=== PATIENT | female | born 1960 | race Caucasian/White ===

== ENCOUNTER 2023-04-05 13:45 | Outpatient (OUT) | payer OTHER, SELFPAY ==
--- NOTE | 2023-04-05 13:53 | MM_ITS ---
Patient: MILLER MONROE Exam Date: 04/05/2023 : 1960 Gender:F Ordering : DR Lenny Cortes . Admission #: [id number] Family : Order #: [id number] CLICK HERE TO VIEW EXAM RADIOLOGY REPORT PROCEDURE: MM TOMOSYNTHESIS SCREENING BI COMPARISON: MG MAMM SCREEN ALFREDO W CAD, 10/28/2020. MG MAMM SCREEN ALFREDO W CAD, 08/14/2019. INDICATIONS: Screening mammogram Z12.31 Calculator Name NCI Breast Cancer Risk Assessment Tool 5 Year Breast Cancer Risk 8.50% Lifetime Breast Cancer Risk 33.10% Personal Breast Cancer No Personal Ovarian Cancer No Treatments None Family Cancers Mother with breast cancer at age 68; Grandmother-maternal with breast cancer at age ~65; Sister with breast cancer at age 35. LOCATION: [facility] BREAST COMPOSITION: Scattered areas fibroglandular density. FINDINGS: DIAGNOSTIC CATEGORY 2--BENIGN FINDING: RIGHT BREAST: No significant suspicious finding. Scattered benign-appearing calcifications are present. LEFT BREAST: No significant suspicious finding. Scattered benign-appearing calcifications are present. No significant change has occurred. RECOMMENDATIONS: ROUTINE MAMMOGRAM AND CLINICAL EVALUATION IN 12 MONTHS. PLEASE NOTE: A NORMAL MAMMOGRAM DOES NOT EXCLUDE THE POSSIBILITY OF BREAST CANCER. A CLINICALLY SUSPICIOUS PALPABLE LUMP SHOULD BE BIOPSIED. Dictated by: Stanton Boo M.D. on 04/05/2023 at 15:05 Approved by: Stanton Boo M.D. on 04/05/2023 at 15:07
== END 2023-04-05 13:46 | disposition home or self-care (01) ==
LOC: MAMMO 13:47
PROVIDERS: PCP Family Medicine; Visit Provider Family Medicine
DX: Z12.31 Encounter for screening mammogram for malignant neoplasm of breast (principal); Z80.3 Family history of malignant neoplasm of breast
CPT/HCPCS: 77063; 77067

== ENCOUNTER 2023-08-02 13:11 | Outpatient (OUT) | payer OTHER, SELFPAY ==
[2023-08-02 13:53] LABS: Free T3 2.32 pg/mL (2.18-3.98); Thyroid Stimulating Hormone 3.221 uIU/mL (0.358-3.740)
[2023-08-02 14:37] LABS: Free T4 0.68 ng/dL (0.76-1.46)
== END 2023-08-02 13:12 | disposition home or self-care (01) ==
LOC: LAB 13:13
PROVIDERS: PCP Family Medicine; Visit Provider Family Medicine
DX: E03.8 Other specified hypothyroidism (principal)
CPT/HCPCS: 36415; 84439; 84443; 84481

== ENCOUNTER 2024-01-05 08:32 | Outpatient (OUT) | payer OTHER, SELFPAY ==
--- OUTSIDE RECORDS SUMMARY | 2024-01-05 08:53 | XMS_ITS | CCD ---
Author Organization [facility] Care Team Providers Care Labourers Name Role Phone DR MIESHA BULLARD Admitting Unavailable DR MIESHA BULLARD Attending Unavailable DR MIESHA BULLARD Primary Care Unavailable JUAN MIGUEL, DR MIESHA Hernandez Consulting Unavailable Results Test Name Value Interpretation Reference Range Facil ity CBC AUTO DIFFon 01-12-2023 BASO # 0.1 103/ul Normal 0.0-0.1 [facility] Comment on above: Performed By: #### C BC #### [facility] [address] [address] [address] Juancho Marrero Basophils/100 WBC (Bld) 0.7 % Normal 0.2-2.0 [facility] Comment on above: Performed By: #### C BC #### [facility] [address] [address] [address] Juancho Marrero EO # 0.3 103/ul Normal 0.0-0.7 [facility] Comment on above: Performed By: #### C BC #### [facility] [address] [address] [address] Juancho Marrero Eosinophils/100 WBC (Bld) 4.9 % Normal 0.9-7.0 [facility] Comment on above: Performed By: #### C BC #### [facility] [address] [address] [address] Juancho Marrero Erythrocyte distribution width (RBC) [Ratio] 12.4 % Normal 11.0-15.0 [facility] Comment on above: Performed By: #### C BC #### [facility] [address] [address] [address] Juancho Marrero Hematocrit (Bld) [Volume fraction] 41.4 % Normal 36.0-48.0 [facility] Comment on above: Performed By: #### C BC #### [facility] [address] [place] [address] Dr. Juancho Marrero Hemoglobin (Bld) [Mass/Vol] 13.4 g/dL Normal 12.0-16.0 [facility] Comment on above: Performed By: #### C BC #### [facility] [address] [place] [address] Dr. Juancho Marrero IG # 0.02 10e3/ul Normal 0.00-0.03 [facility] Comment on above: Performed By: #### C BC #### [facility] [address] [place] [address] Dr. Juancho Marrero IG % 0.3 % Normal 0.0-0.5 [facility] Comment on above: Performed By: #### C BC #### [facility] [address] [place] [address] Dr. Juancho Marrero LYMPH # 2.5 103/ul Normal 1.2-3.8 [facility] Comment on above: Performed By: #### C BC #### [facility] [address] [place] [address] Dr. Juancho Marrero Lymphocytes/100 WBC (Bld) 36.8 % Normal 20.5-60.0 [facility] Comment on above: Performed By: #### C BC #### [facility] [address] [place] [address] Dr. Juancho Marrero MANUAL DIFF REQ NO Normal [facility] Comment on above: Performed By: #### C BC #### [facility] [address] [place] [address] Dr. Juancho Marrero MCH (RBC) [Entitic mass] 31.8 pg Normal 26.7-34.0 [facility] Comment on above: Performed By: #### C BC #### [facility] [address] [place] [address] Dr. Juancho Marrero MCHC (RBC) [Mass/Vol] 32.4 g/dL Normal 29.9-35.2 [facility] Comment on above: Performed By: #### C BC #### [facility] [address] [address] [address] Juancho Marrero MCV (RBC) [Entitic vol] 98.1 fL Normal 81.0-99.0 [facility] Comment on above: Performed By: #### C BC #### [facility] [address] [address] [address] Juancho Marrero MONO # 0.5 103/ul Normal 0.3-0.8 [facility] Comment on above: Performed By: #### C BC #### [facility] [address] [place] [address] Dr. Juancho Marrero Monocytes/100 WBC (Bld) 7.6 % Normal 1.7-12.0 [facility] Comment on above: Performed By: #### C BC #### [facility] [address] [place] [address] Dr. Juancho Marrero NEUT # 3.3 103/ul Normal 1.4-6.5 [facility] Comment on above: Performed By: #### C BC #### [facility] [address] [place] [address] Dr. Juancho Marrero Neutrophils/100 WBC (Bld) 49.7 % Normal 43.0-75.0 [facility] Comment on above: Performed By: #### C BC #### [facility] [address] [place] [address] Dr. Juancho Marrero Platelet mean volume (Bld) [Entitic vol] 9.7 fL Normal 9.5-13.5 [facility] Comment on above: Performed By: #### C BC #### [facility] [address] [place] [address] Dr. Juancho Marrero PLT 293 103/ul Normal 150-450 [facility] Comment on above: Performed By: #### C BC #### [facility] [address] [place] [address] Dr. Juancho Marrero RBC 4.22 106/ul Normal 4.20-5.40 [facility] Comment on above: Performed By: #### C BC #### [facility] [address] [place] [address] Dr. Juancho Marrero WBC 6.7 103/ul Normal 4.0-11.0 [facility] Comment on above: Performed By: #### C BC #### [facility] [address] [address] [address] Juancho Marrero GLYCOHEMOGLOBIN A1Con 2022 ADA RECOMMENDATION SEE BELOW Normal [facility] Comment on above: Result Comment: ADA RECOMMENDED LIMIT 4.0 - 6.0 ADA THERAPEUTIC TARGET < 7.0 ACTION SUGGESTED > 7.0 Performed By: #### A 1C #### [facility] [address] [address] [address] Juancho Marrero Glucose [Mass/Vol] 105 mg/dL Normal [facility] Comment on above: Performed By: #### A 1C #### [facility] [address] [place] [address] Dr. Juancho Marrero HbA1c (Bld) [Mass fraction] 5.3 % Normal 4.5-6.2 [facility] Comment on above: Performed By: #### A 1C #### [facility] [address] [address] [address] Juancho Marrero LIPID PROFILEon 01-12-2023 CHOL-HDL RATIO NORM SEE BELOW Normal [facility] Comment on above: Result Comment: 3.3 - 4.4 LOW RISK 4.4 - 7.1 AVERAGE RISK 7.1 - 11.0 MODERATE RISK >11.0 HIGH RISK Performed By: #### B MP, TSH, LIPID, LIVER #### [facility] [address] [address] [address] Juancho Marrero Cholesterol [Mass/Vol] 225 mg/dL Critically high <=200 [facility] Comment on above: Performed By: #### B MP, TSH, LIPID, LIVER #### [facility] [address] [address] [address] Juancho Marrero Cholesterol in HDL [Mass/Vol] 66 mg/dL Critically high 40-60 [facility] Comment on above: Performed By: #### B MP, TSH, LIPID, LIVER #### [facility] [address] [address] [address] Juancho Marrero Cholesterol in LDL [Mass/Vol] 134.6 mg/dL Normal [facility] Comment on above: Performed By: #### B MP, TSH, LIPID, LIVER #### [facility] [address] [address] [address] Juancho Marrero Cholesterol.total/Cho lesterol in HDL [Mass ratio] 3.4 {ratio} Normal [facility] Comment on above: Performed By: #### B MP, TSH, LIPID, LIVER #### [facility] [address] [place] [address] Dr. Juancho Marrero HDL NORMAL > or = 60 mg/dl - LOW CARDIOVASCULAR RISK <40 mg/dl - HIGH CARDIOVASCULAR RISK Normal [facility] Comment on above: Performed By: #### B MP, TSH, LIPID, LIVER #### [facility] [address] [place] [address] Dr. Juancho Marrero LDL CALC NORMAL SEE BELOW Normal [facility] Comment on above: Result Comment: <100 mg/dl OPTIMAL 100 - 129 mg/dl NEAR OR ABOVE OPTIMAL 130 - 159 mg/dl BORDERLINE HIGH 160 - 189 mg/dl HIGH >190 mg/dl VERY HIGH Performed By: #### B MP, TSH, LIPID, LIVER #### [facility] [address] [place] [address] Dr. Juancho Marrero Triglyceride [Mass/Vol] 122 mg/dL Normal <=150 [facility] Comment on above: Performed By: #### B MP, TSH, LIPID, LIVER #### [facility] [address] [place] [address] Dr. Juancho Marrero VLDL CALC 24.4 mg/dL Normal [facility] Comment on above: Performed By: #### B MP, TSH, LIPID, LIVER #### [facility] [address] [place] [address] Dr. Juancho Marrero LIVER PROFILEon 01-12-2023 Albumin [Mass/Vol] 4.0 g/dL Normal 3.4-5.0 [facility] Comment on above: Performed By: #### B MP, TSH, LIPID, LIVER #### [facility] [address] [place] [address] Dr. Juancho Marrero Albumin/Globulin [Mass ratio] 1.2 {ratio} Normal [facility] Comment on above: Performed By: #### B MP, TSH, LIPID, LIVER #### [facility] [address] [place] [address] Dr. Juancho Marrero ALP [Catalytic activity/Vol] 68 U/L Normal 46-116 [facility] Comment on above: Performed By: #### B MP, TSH, LIPID, LIVER #### [facility] [address] [place] [address] Dr. Juancho Marrero ALT [Catalytic activity/Vol] 28 U/L Normal 14-59 [facility] Comment on above: Performed By: #### B MP, TSH, LIPID, LIVER #### [facility] [address] [place] [address] Dr. Juancho Marrero AST [Catalytic activity/Vol] 19 U/L Normal 15-37 [facility] Comment on above: Performed By: #### B MP, TSH, LIPID, LIVER #### [facility] [address] [place] [address] Dr. Juancho Marrero BILI, CONJUGATED 0.1 mg/dL Normal 0.0-0.2 [facility] Comment on above: Performed By: #### B MP, TSH, LIPID, LIVER #### [facility] [address] [place] [address] Dr. Juancho Marrero Bilirubin [Mass/Vol] 0.3 mg/dL Normal 0.2-1.0 [facility] Comment on above: Performed By: #### B MP, TSH, LIPID, LIVER #### [facility] [address] [place] [address] Dr. Juancho Marrero Globulin (S) [Mass/Vol] 3.3 g/dL Normal [facility] Comment on above: Performed By: #### B MP, TSH, LIPID, LIVER #### [facility] [address] [place] [address] Dr. Juancho Marrero Protein [Mass/Vol] 7.3 g/dL Normal 6.4-8.2 [facility] Comment on above: Performed By: #### B MP, TSH, LIPID, LIVER #### [facility] [address] [place] [address] Dr. Juancho Marrero PROF CHEM 8 (BAS METB)on Anion gap [Moles/Vol] 10.3 mmol/L Normal [facility] Comment on above: Performed By: #### B MP, TSH, LIPID, LIVER #### [facility] [address] [place] [address] Dr. Juancho Marrero Calcium [Mass/Vol] 8.8 mg/dL Normal 8.5-10.1 [facility] Comment on above: Performed By: #### B MP, TSH, LIPID, LIVER #### [facility] [address] [place] [address] Dr. Juancho Marrero Chloride [Moles/Vol] 107 mmol/L Normal 98-107 [facility] Comment on above: Performed By: #### B MP, TSH, LIPID, LIVER #### [facility] [address] [place] [address] Dr. Juancho Marrero CO2 [Moles/Vol] 28.9 mmol/L Normal 21.0-32.0 [facility] Comment on above: Performed By: #### B MP, TSH, LIPID, LIVER #### [facility] [address] [place] [address] Dr. Juancho Marrero Creatinine [Mass/Vol] 0.64 mg/dL Normal 0.55-1.02 [facility] Comment on above: Performed By: #### B MP, TSH, LIPID, LIVER #### [facility] [address] [place] [address] Dr. Juancho Marrero EGFR-AF POLISH >60 Normal >=60 [facility] Comment on above: Performed By: #### B MP, TSH, LIPID, LIVER #### [facility] [address] [place] [address] Dr. Juancho Marrero EGFR-NON AF POLISH >60 Normal >=60 [facility] Comment on above: Performed By: #### B MP, TSH, LIPID, LIVER #### [facility] [address] [place] [address] Dr. Juancho Marrero Glucose [Mass/Vol] 99 mg/dL Normal 74-[address] [facility] Comment on above: Performed By: #### B MP, TSH, LIPID, LIVER #### [facility] [address] [address] [address] Juancho Marrero Potassium [Moles/Vol] 4.2 mmol/L Normal 3.5-5.1 [facility] Comment on above: Performed By: #### B MP, TSH, LIPID, LIVER #### [facility] [address] [address] [address] Juancho Marrero Sodium [Moles/Vol] 142 mmol/L Normal 136-[address] [facility] Comment on above: Performed By: #### B MP, TSH, LIPID, LIVER #### [facility] [address] [place] [address] Dr. Juancho Marrero Urea nitrogen [Mass/Vol] 14.0 mg/dL Normal 7.0-18.0 [facility] Comment on above: Performed By: #### B MP, TSH, LIPID, LIVER #### [facility] [address] [place] [address] Dr. Juancho Marrero Urea nitrogen/Creatinine [Mass ratio] 21.9 mg/mg Normal [facility] Comment on above: Performed By: #### B MP, TSH, LIPID, LIVER #### [facility] [address] [place] [address] Dr. Juancho Marrero TSHon 01-12-2023 TSH 3.881 uIU/mL Critically high 0.358-3.740 [facility] Comment on above: Performed By: #### B MP, TSH, LIPID, LIVER #### [facility] [address] [place] [address] Dr. Juancho Marrero Encounters Encounter Date Encounter Type Care Provider Facility Start: 01-16-2023 Encounter for genera l adult medical examination without abnormal findings DR MIESHA BULLARD [facility] Start: 01-12-2023 End: 01-13-[address] MIESHA BULLARD Facility: Start: 01-12-2023 End: 01-13-2023 Encounter for general adult medical examination without abnormal findings DR MIESHA BULLARD Facility:[facility] Payers Date Payer Category Payer Unknown [id number] Unknown [id number] Summary Purpose Family History No Family History Records Found Advance Directives No Advanced Directives Records Found Additional Source Comments INFORMATION SOURCE (unrecogn ized section and content) DATE CREATED AUTHOR [facility]/17/2023 [facility] RECORDS PERTAINING TO PATIENTS WHO ARE OR HAVE BEEN ENROLLED IN A CHEMICAL DEPENDENCY/SUBSTANCEABUSE PROGRAM, SOME INFORMATION MAY BE OMITTED. This clinical summary was aggregated from multiple sources. Caution should be exercised in using it in the provision of clinical care. This summary normalizes information from multiple sources, and as a consequence, information in this document may materially change the coding, format and clinical context of patient data. In addition, data may be omitted in some cases. CLINICAL DECISIONS SHOULD BE BASED ON THE PRIMARY CLINICAL RECORDS. [facility] [employer] provides no warranty or guarantee of the accuracy or completeness of information in this document.
[2024-01-05 08:56] LABS: Basophils Absolute Auto 0.1 10^3/uL (0.0-0.1); Basophils Percent Auto 0.8 % (0.2-2.0); Eosinophils Absolute Auto 0.3 10^3/uL (0.0-0.7); Eosinophils Percent Auto 5.3 % (0.9-7.0); Hematocrit 38.1 % (36.0-48.0); Hemoglobin 12.2 g/dL (12.0-16.0); Immature Granulocytes Abs Auto 0.02 10^3/uL (0.00-0.03); Immature Granulocytes Pct Auto 0.3 % (0.0-0.5); Lymphocytes Absolute Auto 2.3 10^3/uL (1.2-3.8); Mean Corpuscular Hemoglobin 31.7 pg (26.7-34.0); Mean Platelet Volume 10.5 fL (9.5-13.5); Monocytes Absolute Auto 0.7 10^3/uL (0.3-0.8); Monocytes Percent Auto 10.6 % (1.7-12.0); Neutrophils Absolute Auto 2.9 10^3/uL (1.4-6.5); Platelet Count 259 10^3/uL (150-450); Red Blood Count 3.85 10^6/uL (4.20-5.40); Red Cell Distribution Width 12.4 % (11.0-15.0); White Blood Count 6.2 10^3/uL (4.0-11.0)
[2024-01-05 09:36] LABS: Estimated Average Glucose 117 mg/dL; Glycohemoglobin A1C 5.7 % (4.5-6.2)
[2024-01-05 09:48] LABS: Alanine Aminotransferase 26 U/L (14-59); Albumin Globulin Ratio 1.3; Albumin Level 3.8 g/dL (3.4-5.0); Alkaline Phosphatase 71 U/L (46-116); Anion Gap 12.1; Aspartate Amino Transferase 16 U/L (15-37); BUN Creatinine Ratio 21.6; Bilirubin Direct 0.1 mg/dL (0.0-0.2); Bilirubin Total 0.3 mg/dL (0.2-1.0); Calcium 9.1 mg/dL (8.5-10.1); Carbon Dioxide 26.9 mmol/L (21.0-32.0); Chloride 105 mmol/L (98-107); Cholesterol 204 mg/dL (<=200); Estimated GFR (African America >60 (>=60); Estimated GFR (Non-African Ame >60 (>=60); Glucose 116 mg/dL (74-106); HDL Cholesterol 68 mg/dL (40-60); Sodium 140 mmol/L (136-145); Thyroid Stimulating Hormone 6.425 uIU/mL (0.358-3.740); Total Protein 6.8 g/dL (6.4-8.2); Triglycerides 57 mg/dL (<=150); VLDL CHOLESTEROL 11.4 mg/dL
== END 2024-01-05 08:33 | disposition home or self-care (01) ==
LOC: LAB 08:33
PROVIDERS: PCP Family Medicine; Visit Provider Family Medicine
DX: Z00.00 Encounter for general adult medical examination without abnormal findings (principal)
CPT/HCPCS: 36415; 80048; 80061; 80076; 83036; 84443; 85025

== ENCOUNTER 2024-04-05 07:05 | Outpatient (OUT) | payer OTHER, SELFPAY ==
--- OUTSIDE RECORDS SUMMARY | 2024-04-05 07:07 | XMS_ITS | CCD ---
Author Organization [facility] Care Team Providers Care Rn Discharge Name Role Phone DR MIESHA BULLARD Admitting Unavailable JUAN MIGUEL, DR MIESHA Hernandez Attending Unavailable DR MIESHA BULLARD Primary Care Unavailable JUAN MIGUEL, DR MIESHA Hernandez Consulting Unavailable MIESHA BULLARD Attending Unavailable GANGA STEVENS Attending Unavailable MIESHA BULLARD Referring Unavailable Results Test Name Value Interpretation Reference Range Facil ity CBC AUTO DIFFon 01-12-2023 BASO # 0.1 103/ul Normal 0.0-0.1 [facility] Comment on above: Performed By: #### C BC #### [facility] [address] [place] [address] Dr. Juancho Marrero Basophils/100 WBC (Bld) 0.7 % Normal 0.2-2.0 [facility] Comment on above: Performed By: #### C BC #### [facility] [address] [place] [address] Dr. Juancho Marrero EO # 0.3 103/ul Normal 0.0-0.7 [facility] Comment on above: Performed By: #### C BC #### [facility] [address] [address] [address] Juancho Marrero Eosinophils/100 WBC (Bld) 4.9 % Normal 0.9-7.0 [facility] Comment on above: Performed By: #### C BC #### [facility] [address] [address] [address] Juancho Marrero Erythrocyte distribution width (RBC) [Ratio] 12.4 % Normal 11.0-15.0 [facility] Comment on above: Performed By: #### C BC #### [facility] [address] [place] [address] Dr. Juancho Marrero Hematocrit (Bld) [Volume fraction] 41.4 % Normal 36.0-48.0 [facility] Comment on above: Performed By: #### C BC #### [facility] [address] [place] [address] Dr. Juancho Marrero Hemoglobin (Bld) [Mass/Vol] 13.4 g/dL Normal 12.0-16.0 [facility] Comment on above: Performed By: #### C BC #### [facility] [address] [place] [address] Dr. Juancho Marrero IG # 0.02 10e3/ul Normal 0.00-0.03 [facility] Comment on above: Performed By: #### C BC #### [facility] [address] [place] [address] Dr. Juancho Marrero IG % 0.3 % Normal 0.0-0.5 [facility] Comment on above: Performed By: #### C BC #### [facility] [address] [place] [address] Dr. Juancho Marrero LYMPH # 2.5 103/ul Normal 1.2-3.8 [facility] Comment on above: Performed By: #### C BC #### [facility] [address] [place] [address] Dr. Juancho Marrero Lymphocytes/100 WBC (Bld) 36.8 % Normal 20.5-60.0 [facility] Comment on above: Performed By: #### C BC #### [facility] [address] [place] [address] Dr. Juancho Marrero MANUAL DIFF REQ NO Normal [facility] Comment on above: Performed By: #### C BC #### [facility] [address] [place] [address] Dr. Juancho Marrero MCH (RBC) [Entitic mass] 31.8 pg Normal 26.7-34.0 [facility] Comment on above: Performed By: #### C BC #### [facility] [address] [place] [address] Dr. Juancho Marrero MCHC (RBC) [Mass/Vol] 32.4 g/dL Normal 29.9-35.2 [facility] Comment on above: Performed By: #### C BC #### [facility] [address] [place] [address] Dr. Juancho Marrero MCV (RBC) [Entitic vol] 98.1 fL Normal 81.0-99.0 [facility] Comment on above: Performed By: #### C BC #### [facility] [address] [place] [address] Dr. Juancho Marrero MONO # 0.5 103/ul Normal 0.3-0.8 [facility] Comment on above: Performed By: #### C BC #### [facility] [address] [place] [address] Dr. Juancho Marrero Monocytes/100 WBC (Bld) 7.6 % Normal 1.7-12.0 [facility] Comment on above: Performed By: #### C BC #### [facility] [address] [place] [address] Dr. Juancho Marrero NEUT # 3.3 103/ul Normal 1.4-6.5 [facility] Comment on above: Performed By: #### C BC #### [facility] [address] [place] [address] Dr. Juancho Marrero Neutrophils/100 WBC (Bld) 49.7 % Normal 43.0-75.0 [facility] Comment on above: Performed By: #### C BC #### [facility] [address] [place] [address] Dr. Juancho Marrero Platelet mean volume (Bld) [Entitic vol] 9.7 fL Normal 9.5-13.5 [facility] Comment on above: Performed By: #### C BC #### [facility] [address] [place] [address] Dr. Juancho Marrero PLT 293 103/ul Normal 150-450 [facility] Comment on above: Performed By: #### C BC #### [facility] [address] [place] [address] Dr. Juancho Marrero RBC 4.22 106/ul Normal 4.20-5.40 [facility] Comment on above: Performed By: #### C BC #### [facility] [address] [address] [address] Juancho Marrero WBC 6.7 103/ul Normal 4.0-11.0 [facility] Comment on above: Performed By: #### C BC #### [facility] [address] [address] [address] Juancho Marrero GLYCOHEMOGLOBIN A1Con 2022 ADA RECOMMENDATION SEE BELOW Normal [facility] Comment on above: Result Comment: ADA RECOMMENDED LIMIT 4.0 - 6.0 ADA THERAPEUTIC TARGET < 7.0 ACTION SUGGESTED > 7.0 Performed By: #### A 1C #### [facility] [address] [place] [address] Dr. Juancho Marrero Glucose [Mass/Vol] 105 mg/dL Normal [facility] Comment on above: Performed By: #### A 1C #### [facility] [address] [place] [address] Dr. Juancho Marrero HbA1c (Bld) [Mass fraction] 5.3 % Normal 4.5-6.2 [facility] Comment on above: Performed By: #### A 1C #### [facility] [address] [place] [address] Dr. Juancho Marrero LIPID PROFILEon 01-12-2023 CHOL-HDL RATIO NORM SEE BELOW Normal [facility] Comment on above: Result Comment: 3.3 - 4.4 LOW RISK 4.4 - 7.1 AVERAGE RISK 7.1 - 11.0 MODERATE RISK >11.0 HIGH RISK Performed By: #### B MP, TSH, LIPID, LIVER #### [facility] [address] [address] [address] Juancho Marrero Cholesterol [Mass/Vol] 225 mg/dL Critically high <=200 [facility] Comment on above: Performed By: #### B MP, TSH, LIPID, LIVER #### [facility] [address] [place] [address] Dr. Juancho Marrero Cholesterol in HDL [Mass/Vol] 66 mg/dL Critically high 40-60 [facility] Comment on above: Performed By: #### B MP, TSH, LIPID, LIVER #### [facility] [address] [address] [address] Juancho Marrero Cholesterol in LDL [Mass/Vol] 134.6 mg/dL Normal [facility] Comment on above: Performed By: #### B MP, TSH, LIPID, LIVER #### [facility] [address] [address] [address] Juancho Marrero Cholesterol.total/Cho lesterol in HDL [Mass ratio] 3.4 {ratio} Normal [facility] Comment on above: Performed By: #### B MP, TSH, LIPID, LIVER #### [facility] [address] [address] [address] Juancho Marrero HDL NORMAL > or = 60 mg/dl - LOW CARDIOVASCULAR RISK <40 mg/dl - HIGH CARDIOVASCULAR RISK Normal [facility] Comment on above: Performed By: #### B MP, TSH, LIPID, LIVER #### [facility] [address] [address] [address] Juancho Marrero LDL CALC NORMAL SEE BELOW Normal [facility] Comment on above: Result Comment: <100 mg/dl OPTIMAL 100 - 129 mg/dl NEAR OR ABOVE OPTIMAL 130 - 159 mg/dl BORDERLINE HIGH 160 - 189 mg/dl HIGH >190 mg/dl VERY HIGH Performed By: #### B MP, TSH, LIPID, LIVER #### [facility] [address] [address] [address] Juancho Marrero Triglyceride [Mass/Vol] 122 mg/dL Normal <=150 [facility] Comment on above: Performed By: #### B MP, TSH, LIPID, LIVER #### [facility] [address] [address] [address] Juancho Marrero VLDL CALC 24.4 mg/dL Normal [facility] Comment on above: Performed By: #### B MP, TSH, LIPID, LIVER #### [facility] [address] [address] [address] Juancho Marrero LIVER PROFILEon 01-12-2023 Albumin [Mass/Vol] 4.0 g/dL Normal 3.4-5.0 [facility] Comment on above: Performed By: #### B MP, TSH, LIPID, LIVER #### [facility] [address] [place] [address] Dr. Juancho Marrero Albumin/Globulin [Mass ratio] 1.2 {ratio} Normal [facility] Comment on above: Performed By: #### B MP, TSH, LIPID, LIVER #### [facility] [address] [place] [address] Dr. Juancho Marrero ALP [Catalytic activity/Vol] 68 U/L Normal 46-116 [facility] Comment on above: Performed By: #### B MP, TSH, LIPID, LIVER #### [facility] [address] [place] [address] Dr. Juancho Marrero ALT [Catalytic activity/Vol] 28 U/L Normal 14-59 [facility] Comment on above: Performed By: #### B MP, TSH, LIPID, LIVER #### [facility] [address] [place] [address] Dr. Juancho Marrero AST [Catalytic activity/Vol] 19 U/L Normal 15-37 [facility] Comment on above: Performed By: #### B MP, TSH, LIPID, LIVER #### [facility] [address] [place] [address] Dr. Juancho Marrero BILI, CONJUGATED 0.1 mg/dL Normal 0.0-0.2 [facility] Comment on above: Performed By: #### B MP, TSH, LIPID, LIVER #### [facility] [address] [place] [address] Dr. Juancho Marrero Bilirubin [Mass/Vol] 0.3 mg/dL Normal 0.2-1.0 [facility] Comment on above: Performed By: #### B MP, TSH, LIPID, LIVER #### [facility] [address] [place] [address] Dr. Juancho Marrero Globulin (S) [Mass/Vol] 3.3 g/dL Normal [facility] Comment on above: Performed By: #### B MP, TSH, LIPID, LIVER #### [facility] [address] [place] [address] Dr. Juancho Marrero Protein [Mass/Vol] 7.3 g/dL Normal 6.4-8.2 [facility] Comment on above: Performed By: #### B MP, TSH, LIPID, LIVER #### [facility] [address] [address] [address] Juancho Marrero PROF CHEM 8 (BAS METB)on Anion gap [Moles/Vol] 10.3 mmol/L Normal [facility] Comment on above: Performed By: #### B MP, TSH, LIPID, LIVER #### [facility] [address] [address] [address] Juancho Marrero Calcium [Mass/Vol] 8.8 mg/dL Normal 8.5-10.1 [facility] Comment on above: Performed By: #### B MP, TSH, LIPID, LIVER #### [facility] [address] [place] [address] Dr. Juancho Marrero Chloride [Moles/Vol] 107 mmol/L Normal 98-107 [facility] Comment on above: Performed By: #### B MP, TSH, LIPID, LIVER #### [facility] [address] [address] [address] Juancho Marrero CO2 [Moles/Vol] 28.9 mmol/L Normal 21.0-32.0 [facility] Comment on above: Performed By: #### B MP, TSH, LIPID, LIVER #### [facility] [address] [address] [address] Juancho Marrero Creatinine [Mass/Vol] 0.64 mg/dL Normal 0.55-1.02 [facility] Comment on above: Performed By: #### B MP, TSH, LIPID, LIVER #### [facility] [address] [address] [address] Juancho Marrero EGFR-AF SWEDISH >60 Normal >=60 [facility] Comment on above: Performed By: #### B MP, TSH, LIPID, LIVER #### [facility] [address] [address] [address] Juancho Marrero EGFR-NON AF SWEDISH >60 Normal >=60 [facility] Comment on above: Performed By: #### B MP, TSH, LIPID, LIVER #### [facility] [address] [address] [address] Juancho Marrero Glucose [Mass/Vol] 99 mg/dL Normal 74-106 [facility] Comment on above: Performed By: #### B MP, TSH, LIPID, LIVER #### [facility] [address] [address] [address] Juancho Marrero Potassium [Moles/Vol] 4.2 mmol/L Normal 3.5-5.1 [facility] Comment on above: Performed By: #### B MP, TSH, LIPID, LIVER #### [facility] [address] [address] [address] Juancho Marrero Sodium [Moles/Vol] 142 mmol/L Normal 136-145 [facility] Comment on above: Performed By: #### B MP, TSH, LIPID, LIVER #### [facility] [address] [address] [address] Juancho Marrero Urea nitrogen [Mass/Vol] 14.0 mg/dL Normal 7.0-18.0 [facility] Comment on above: Performed By: #### B MP, TSH, LIPID, LIVER #### [facility] [address] [address] [address] Juancho Marrero Urea nitrogen/Creatinine [Mass ratio] 21.9 mg/mg Normal [facility] Comment on above: Performed By: #### B MP, TSH, LIPID, LIVER #### [facility] [address] [place] [address] Dr. Juancho Marrero TSHon 01-12-2023 TSH 3.881 uIU/mL Critically high 0.358-3.740 [facility] Comment on above: Performed By: #### B MP, TSH, LIPID, LIVER #### [facility] [address] [place] [address] Dr. Juancho Marrero Encounters Encounter Date Encounter Type Care Provider Facility Start: 01-26-2024 End: 01-26-2024 ambulatory GANGA STEVENS Not Available Start: 01-05-2024 End: 01-05-2024 ambulatory MIESHA BULLARD Not Available Start: 01-16-2023 Encounter for genera l adult medical examination without abnormal findings DR MIESHA BULLARD [facility] Start: 01-12-2023 End: 01-13-[address] MIESHA BULLARD Facility:[id number] Start: 01-12-2023 End: 01-13-2023 Encounter for general adult medical examination without abnormal findings DR MIESHA BULLARD Facility:[id number] Payers Date Payer Category Payer Unknown [id number] 1960 Unknown [id number] 1960 Unknown [id number] 1960 Unknown [id number] Summary Purpose Family History No Family History Records FoundNo Family History Records Found Advance Directives No Advanced Directives Records FoundNo Advanced Directives Records Found Additional Source Comments INFORMATION SOURCE (unrecogn ized section and content) DATE CREATED AUTHOR 01/17/2023 [facility] DATE CREATED AUTHOR AUTHOR'S ORGANIZ ATION 01/29/2024 [facility] EPIC FOR RECORDS PERTAINING TO PATIENTS WHO ARE [...] BE BASED ON THE PRIMARY CLINICAL RECORDS. [facility] [employer] provides no warranty or guarantee of the accuracy or completeness of information in this document.
== END 2024-04-05 07:06 | disposition home or self-care (01) ==
LOC: PST 07:05
PROVIDERS: PCP Family Medicine; Visit Provider Surgery
DX: Z01.818 Encounter for other preprocedural examination (principal); Z12.11 Encounter for screening for malignant neoplasm of colon

== ENCOUNTER 2024-04-11 07:02 | Day surgery (SDC) | payer OTHER, SELFPAY ==
--- OUTSIDE RECORDS SUMMARY | 2024-04-11 07:06 | XMS_ITS | CCD ---
Author Organization [facility] Team Providers Care Claim Taker Name Role Phone DR MIESHA BULLARD Admitting Unavailable JUAN MIGUEL, DR MIESHA Hernandez Attending Unavailable DR MIESHA BULLARD Primary Care Unavailable JUAN MIGUEL, DR MIESHA Hernandez Consulting Unavailable MIESHA BULLARD Attending Unavailable AGNGA STEVENS Attending Unavailable MIESHA BULLARD Referring Unavailable Results Test Name Value Interpretation Reference Range Facil ity CBC AUTO DIFFon 01-12-2023 BASO # 0.1 103/ul Normal 0.0-0.1 [facility] Comment on above: Performed By: #### C BC #### [facility] [address] [place] [address] Dr. Juancho Marrero Basophils/100 WBC (Bld) 0.7 % Normal 0.2-2.0 [facility] Comment on above: Performed By: #### C BC #### [facility] [address] [place] [address] Dr. Juancho Marrero EO # 0.3 103/ul Normal 0.0-0.7 [facility] Comment on above: Performed By: #### C BC #### [facility] [address] [address] [address] Juancho Marrero Eosinophils/100 WBC (Bld) 4.9 % Normal 0.9-7.0 [facility] Comment on above: Performed By: #### C BC #### [facility] [address] [place] [address] Dr. Juancho Marrero Erythrocyte distribution width (RBC) [Ratio] 12.4 % Normal 11.0-15.0 [facility] Comment on above: Performed By: #### C BC #### [facility] [address] [place] [address] Dr. Juancho Marrero Hematocrit (Bld) [Volume fraction] 41.4 % Normal 36.0-48.0 [facility] Comment on above: Performed By: #### C BC #### [facility] [address] [place] [address] Dr. Juancho Marrero Hemoglobin (Bld) [Mass/Vol] 13.4 g/dL Normal 12.0-16.0 [facility] Comment on above: Performed By: #### C BC #### [facility] [address] [place] [address] Dr. Juancho Marrero IG # 0.02 10e3/ul Normal 0.00-0.03 [facility] Comment on above: Performed By: #### C BC #### [facility] [address] [place] [address] Dr. Juancho Marrero IG % 0.3 % Normal 0.0-0.5 [facility] Comment on above: Performed By: #### C BC #### [facility] [address] [place] [address] Dr. Juancho Marrero LYMPH # 2.5 103/ul Normal 1.2-3.8 [facility] Comment on above: Performed By: #### C BC #### [facility] [address] [place] [address] Dr. Juancho Marrero Lymphocytes/100 WBC (Bld) 36.8 % Normal 20.5-60.0 [facility] Comment on above: Performed By: #### C BC #### [facility] [address] [place] [address] Dr. Juancho Marrero MANUAL DIFF REQ NO Normal [facility] Comment on above: Performed By: #### C BC #### [facility] [address] [place] [address] Dr. Juancho Marrero MCH (RBC) [Entitic mass] 31.8 pg Normal 26.7-34.0 [facility] Comment on above: Performed By: #### C BC #### [facility] [address] [place] [address] Dr. Juancho Marrero MCHC (RBC) [Mass/Vol] 32.4 g/dL Normal 29.9-35.2 [facility] Comment on above: Performed By: #### C BC #### [facility] [address] [place] [address] Dr. Juancho Marrero MCV (RBC) [Entitic vol] 98.1 fL Normal 81.0-99.0 [facility] Comment on above: Performed By: #### C BC #### [facility] [address] [place] [address] Dr. Juancho Marrero MONO # 0.5 103/ul Normal 0.3-0.8 [facility] Comment on above: Performed By: #### C BC #### [facility] [address] [place] [address] Dr. Juancho Marrero Monocytes/100 WBC (Bld) 7.6 % Normal 1.7-12.0 [facility] Comment on above: Performed By: #### C BC #### [facility] [address] [place] [address] Dr. Juancho Marrero NEUT # 3.3 103/ul Normal 1.4-6.5 [facility] Comment on above: Performed By: #### C BC #### [facility] [address] [place] [address] Dr. Juancho Marrero Neutrophils/100 WBC (Bld) 49.7 % Normal 43.0-75.0 [facility] Comment on above: Performed By: #### C BC #### [facility] [address] [place] [address] Dr. Juancho Marrero Platelet mean volume (Bld) [Entitic vol] 9.7 fL Normal 9.5-13.5 [facility] Comment on above: Performed By: #### C BC #### [facility] [address] [place] [address] Dr. Juancho Marrero PLT 293 103/ul Normal 150-450 [facility] Comment on above: Performed By: #### C BC #### [facility] [address] [place] [address] Dr. Juancho Marrero RBC 4.22 106/ul Normal 4.20-5.40 [facility] Comment on above: Performed By: #### C BC #### [facility] [address] [address] [address] Juancho Marrero WBC 6.7 103/ul Normal 4.0-11.0 [facility] Comment on above: Performed By: #### C BC #### [facility] [address] [address] [address] Juancho Marrero GLYCOHEMOGLOBIN A1Con 2022 ADA RECOMMENDATION SEE BELOW Normal [facility] Comment on above: Result Comment: ADA RECOMMENDED LIMIT 4.0 - 6.0 ADA THERAPEUTIC TARGET < 7.0 ACTION SUGGESTED > 7.0 Performed By: #### A 1C #### [facility] [address] [place] [address] Dr. Juancho Marrero Glucose [Mass/Vol] 105 mg/dL Normal [facility] Comment on above: Performed By: #### A 1C #### [facility] [address] [place] [address] Dr. Juancho Marrero HbA1c (Bld) [Mass fraction] 5.3 % Normal 4.5-6.2 [facility] Comment on above: Performed By: #### A 1C #### [facility] [address] [place] [address] Dr. Juancho Marrero LIPID PROFILEon 01-12-2023 CHOL-HDL RATIO NORM SEE BELOW Normal [facility] Comment on above: Result Comment: 3.3 - 4.4 LOW RISK 4.4 - 7.1 AVERAGE RISK 7.1 - 11.0 MODERATE RISK >11.0 HIGH RISK Performed By: #### B MP, TSH, LIPID, LIVER #### [facility] [address] [address] [address] Juancho Marrero Cholesterol [Mass/Vol] 225 mg/dL Critically high <=200 [facility] Comment on above: Performed By: #### B MP, TSH, LIPID, LIVER #### [facility] [address] [place] [address] Dr. Juancho Marrero Cholesterol in HDL [Mass/Vol] 66 mg/dL Critically high 40-60 [facility] Comment on above: Performed By: #### B MP, TSH, LIPID, LIVER #### [facility] [address] [address] [address] Juancho Marrero Cholesterol in LDL [Mass/Vol] 134.6 mg/dL Normal [facility] Comment on above: Performed By: #### B MP, TSH, LIPID, LIVER #### [facility] [address] [address] [address] Juancho Marrero Cholesterol.total/Cho lesterol in HDL [Mass ratio] 3.4 {ratio} Normal [facility] Comment on above: Performed By: #### B MP, TSH, LIPID, LIVER #### [facility] [address] [address] [address] Juancho Marrero HDL NORMAL > or = 60 mg/dl - LOW CARDIOVASCULAR RISK <40 mg/dl - HIGH CARDIOVASCULAR RISK Normal [facility] Comment on above: Performed By: #### B MP, TSH, LIPID, LIVER #### [facility] [address] [address] [address] Juancho Marrero LDL CALC NORMAL SEE BELOW Normal [facility] Comment on above: Result Comment: <100 mg/dl OPTIMAL 100 - 129 mg/dl NEAR OR ABOVE OPTIMAL 130 - 159 mg/dl BORDERLINE HIGH 160 - 189 mg/dl HIGH >190 mg/dl VERY HIGH Performed By: #### B MP, TSH, LIPID, LIVER #### [facility] [address] [address] [address] Juancho Marrero Triglyceride [Mass/Vol] 122 mg/dL Normal <=150 [facility] Comment on above: Performed By: #### B MP, TSH, LIPID, LIVER #### [facility] [address] [address] [address] Juancho Marrero VLDL CALC 24.4 mg/dL Normal [facility] Comment on above: Performed By: #### B MP, TSH, LIPID, LIVER #### [facility] [address] [address] [address] Juancho Marrero LIVER PROFILEon 01-12-2023 Albumin [Mass/Vol] 4.0 g/dL Normal 3.4-5.0 [facility] Comment on above: Performed By: #### B MP, TSH, LIPID, LIVER #### [facility] [address] [place] [address] Dr. Juancho Marrero Albumin/Globulin [Mass ratio] 1.2 {ratio} Normal [facility] Comment on above: Performed By: #### B MP, TSH, LIPID, LIVER #### [facility] [address] [place] [address] Dr. Juancho Marrero ALP [Catalytic activity/Vol] 68 U/L Normal 46-116 [facility] Comment on above: Performed By: #### B MP, TSH, LIPID, LIVER #### [facility] [address] [place] [address] Dr. Juancho Marrero ALT [Catalytic activity/Vol] 28 U/L Normal 14-59 [facility] Comment on above: Performed By: #### B MP, TSH, LIPID, LIVER #### [facility] [address] [place] [address] Dr. Juancho Marrero AST [Catalytic activity/Vol] 19 U/L Normal 15-37 [facility] Comment on above: Performed By: #### B MP, TSH, LIPID, LIVER #### [facility] [address] [place] [address] Dr. Juancho Marrero BILI, CONJUGATED 0.1 mg/dL Normal 0.0-0.2 [facility] Comment on above: Performed By: #### B MP, TSH, LIPID, LIVER #### [facility] [address] [place] [address] Dr. Juancho Marrero Bilirubin [Mass/Vol] 0.3 mg/dL Normal 0.2-1.0 [facility] Comment on above: Performed By: #### B MP, TSH, LIPID, LIVER #### [facility] [address] [place] [address] Dr. Juancho Marrero Globulin (S) [Mass/Vol] 3.3 g/dL Normal [facility] Comment on above: Performed By: #### B MP, TSH, LIPID, LIVER #### [facility] [address] [place] [address] Dr. Juancho Marrero Protein [Mass/Vol] 7.3 g/dL Normal 6.4-8.2 [facility] Comment on above: Performed By: #### B MP, TSH, LIPID, LIVER #### [facility] [address] [address] [address] Juancho Marrero PROF CHEM 8 (BAS METB)on Anion gap [Moles/Vol] 10.3 mmol/L Normal [facility] Comment on above: Performed By: #### B MP, TSH, LIPID, LIVER #### [facility] [address] [address] [address] Juancho Marrero Calcium [Mass/Vol] 8.8 mg/dL Normal 8.5-10.1 [facility] Comment on above: Performed By: #### B MP, TSH, LIPID, LIVER #### [facility] [address] [place] [address] Dr. Juancho Marrero Chloride [Moles/Vol] 107 mmol/L Normal 98-107 [facility] Comment on above: Performed By: #### B MP, TSH, LIPID, LIVER #### [facility] [address] [address] [address] Juancho Marrero CO2 [Moles/Vol] 28.9 mmol/L Normal 21.0-32.0 [facility] Comment on above: Performed By: #### B MP, TSH, LIPID, LIVER #### [facility] [address] [address] [address] Juancho Marrero Creatinine [Mass/Vol] 0.64 mg/dL Normal 0.55-1.02 [facility] Comment on above: Performed By: #### B MP, TSH, LIPID, LIVER #### [facility] [address] [address] [address] Juancho Marrero EGFR-AF CYPRIOT >60 Normal >=60 [facility] Comment on above: Performed By: #### B MP, TSH, LIPID, LIVER #### [facility] [address] [address] [address] Juancho Marrero EGFR-NON AF CYPRIOT >60 Normal >=60 [facility] Comment on above: Performed By: #### B MP, TSH, LIPID, LIVER #### [facility] [address] [address] [address] Juancho Marrero Glucose [Mass/Vol] 99 mg/dL Normal 74-106 [facility] Comment on above: Performed By: #### B MP, TSH, LIPID, LIVER #### [facility] [address] [address] [address] Juancho Marrero Potassium [Moles/Vol] 4.2 mmol/L Normal 3.5-5.1 [facility] Comment on above: Performed By: #### B MP, TSH, LIPID, LIVER #### [facility] [address] [address] [address] Juancho Marrero Sodium [Moles/Vol] 142 mmol/L Normal 136-145 [facility] Comment on above: Performed By: #### B MP, TSH, LIPID, LIVER #### [facility] [address] [address] [address] Juancho Marrero Urea nitrogen [Mass/Vol] 14.0 mg/dL Normal 7.0-18.0 [facility] Comment on above: Performed By: #### B MP, TSH, LIPID, LIVER #### [facility] [address] [address] [address] Juancho Marrero Urea nitrogen/Creatinine [Mass ratio] 21.9 mg/mg Normal [facility] Comment on above: Performed By: #### B MP, TSH, LIPID, LIVER #### [facility] [address] [place] [address] Dr. Juancho Marrero TSHon 01-12-2023 TSH 3.881 uIU/mL Critically high 0.358-3.740 [facility] Comment on above: Performed By: #### B MP, TSH, LIPID, LIVER #### [facility] [address] [place] [address] Dr. Juancho Marrero Encounters Encounter Date Encounter Type Care Provider Facility Start: 01-26-2024 End: 01-26-2024 ambulatory GANGA STEVENS Not Available Start: 01-05-2024 End: 01-05-2024 ambulatory MIESHA BULLARD Not Available Start: 01-16-2023 Encounter for genera l adult medical examination without abnormal findings DR MIESHA BULLARD [facility] Start: 01-12-2023 End: 01-13-[address] MIESHA BULLARD Facility:[facility] Start: 01-12-2023 End: 01-13-2023 Encounter for general adult medical examination without abnormal findings DR MIESHA BULLARD Facility:[facility] Payers Date Payer Category Payer Unknown [id number] 1960 Unknown [id number] 1960 Unknown [id number] 1960 Unknown [id number] Summary Purpose Family History No Family History Records FoundNo Family History Records Found Advance Directives No Advanced Directives Records FoundNo Advanced Directives Records Found Additional Source Comments INFORMATION SOURCE (unrecogn ized section and content) DATE CREATED AUTHOR 01/17/2023 [facility] DATE CREATED AUTHOR AUTHOR'S ORGANIZ ATION 01/29/2024 [facility] EPIC FOR RECORDS [...] BE BASED ON THE PRIMARY CLINICAL RECORDS. [facility] [email or web address] provides no warranty or guarantee of the accuracy or completeness of information in this document.
[2024-04-11 07:30] VITALS: BP 151/86; PULSE 59; TEMP 36.6; O2SAT 100; BMI 20.3
[2024-04-11] MEDS: LACTATED RINGER'S SOLUTION 1,000 ML 50 ML IV (07:46)
--- NOTE | 2024-04-11 08:43 | W.PM.PROCNOT ---
Date of procedure: 04/11/24 Pre-op diagnosis: screening colonoscopy Post-op diagnosis: other (redundant/ tortuous sigmoid colon ) Procedure: Previous colonoscopy: 2013 procedure: screening colonoscopy The patient was given IV conscious sedation.? The patient's SPO2 remained above 90% throughout the procedure. The colonoscope was inserted per rectum and advanced under direct vision to the cecum with some difficulty due to redundant sigmoid.? The prep was good.? Findings: Terminal ileum os: normal Cecum/Ascending colon: normal Transverse colon: normal Descending/Sigmoid colon: normal aside for redundancy and some tortuousness Rectum/Anus: examined in normal and retroflexed positions and was normal Withdrawal Time was (minutes): 10 The colon was decompressed and the scope was removed.? The patient tolerated the procedure well. Recommendations/Plan: 1.? Lifestyle and dietary modifications as discussed 2.? F/U in 10 years 3.? Discussed with the family Anesthesia: MAC Surgeon: Ace Todd Estimated blood loss (mL): 0 Condition: stable Disposition: PACU
[2024-04-11 09:29] VITALS: BP 136/53; PULSE 72; O2SAT 96
[2024-04-11 09:50] VITALS: BP 160/68; PULSE 69; O2SAT 100
== END 2024-04-11 10:07 | disposition home or self-care (01) ==
PROVIDERS: PCP Family Medicine; Visit Provider Surgery
PROC: (CPT 812; principal; 2024-04-11 08:25)
DX: Z12.11 Encounter for screening for malignant neoplasm of colon (principal); Q43.8 Other specified congenital malformations of intestine; Z98.51 Tubal ligation status; I10 Essential (primary) hypertension
CPT/HCPCS: 45378; J2704

== ENCOUNTER 2024-05-22 12:30 | Outpatient (OUT) | payer OTHER, SELFPAY ==
--- NOTE | 2024-05-22 12:34 | MM_ITS ---
Patient Name: MILLER MONROE MR#: [id number] : 1960 Exam Date: 05/22/2024 Ordering Doctor: DR Lenny Cortes . RADIOLOGY REPORT PROCEDURE: MM TOMOSYNTHESIS SCREENING BI COMPARISON: MM TOMOSYNTHESIS SCREENING BI, 04/05/2023. MG MAMM SCREEN ALFREDO W CAD, 10/28/2020. INDICATIONS: Screening for malignant neoplasm Calculator Name NCI Breast Cancer Risk Assessment Tool 5 Year Breast Cancer Risk 8.80% Lifetime Breast Cancer Risk 32.30% Personal Breast Cancer No Personal Ovarian Cancer No Treatments None Family Cancers Mother with breast cancer at age 68; Grandmother-maternal with breast cancer at age ~65; Sister with breast cancer at age 35. LOCATION: [facility] BREAST COMPOSITION: There are scattered areas of fibroglandular density. FINDINGS: DIAGNOSTIC CATEGORY 2--BENIGN FINDING. NO CHANGE FROM COMPARISON. Scattered benign-appearing calcifications are present. Scattered benign-appearing lymph nodes are present. RIGHT BREAST: No significant suspicious finding. LEFT BREAST: No significant suspicious finding. RECOMMENDATIONS: ROUTINE MAMMOGRAM AND CLINICAL EVALUATION IN 12 MONTHS. PLEASE NOTE: A NORMAL MAMMOGRAM DOES NOT EXCLUDE THE POSSIBILITY OF BREAST CANCER. A CLINICALLY SUSPICIOUS PALPABLE LUMP SHOULD BE BIOPSIED. Dictated by: Jamel Lou MD on 05/22/2024 at 15:37 Approved by: Jamel Lou MD on 05/22/2024 at 15:39
--- OUTSIDE RECORDS SUMMARY | 2024-05-22 12:47 | XMS_ITS | CCD ---
Author Organization [facility] Team Providers Care Marketing Operations Manager Name Role Phone DR MIESHA BULLARD Admitting Unavailable JUAN MIGUEL, DR MIESHA Hernandez Attending Unavailable DR MIESHA BULLARD Primary Care Unavailable JUAN MIGUEL, DR MIESHA Hernandez Consulting Unavailable MIESHA BULLARD Attending Unavailable GANGA STEVENS Attending Unavailable MIESHA BULLARD Referring Unavailable Results Test Name Value Interpretation Reference Range Facil ity CBC AUTO DIFFon 01-12-2023 BASO # 0.1 103/ul Normal 0.0-0.1 [facility] Comment on above: Performed By: #### C BC #### [facility] [address] [place] [address] Dr. Juancho Marrero Basophils/100 WBC (Bld) 0.7 % Normal 0.2-2.0 [facility] Comment on above: Performed By: #### C BC #### [facility] [address] [place] [address] Dr. Juancho Marrero EO # 0.3 103/ul Normal 0.0-0.7 [facility] Comment on above: Performed By: #### C BC #### [facility] [address] [address] [address] Juancho Marrero Eosinophils/100 WBC (Bld) 4.9 % Normal 0.9-7.0 [facility] Comment on above: Performed By: #### C BC #### [facility] [address] [address] [address] Juancho Marrero Erythrocyte distribution width (RBC) [Ratio] 12.4 % Normal 11.0-15.0 [facility] Comment on above: Performed By: #### C BC #### [facility] [address] [place] [address] Dr. Juancho Marrero Hematocrit (Bld) [Volume fraction] 41.4 % Normal 36.0-48.0 [facility] Comment on above: Performed By: #### C BC #### [facility] [address] [place] [address] Dr. uJancho Marrero Hemoglobin (Bld) [Mass/Vol] 13.4 g/dL Normal 12.0-16.0 [facility] Comment on above: Performed By: #### C BC #### [facility] [address] [place] [address] Dr. Juancho Marrero IG # 0.02 10e3/ul Normal 0.00-0.03 [facility] Comment on above: Performed By: #### C BC #### [facility] [address] [place] [address] Dr. Juancho Marrero IG % 0.3 % Normal 0.0-0.5 [facility] Comment on above: Performed By: #### C BC #### [facility] [address] [place] [address] Dr. Juancho Marrero LYMPH # 2.5 103/ul Normal 1.2-3.8 [facility] Comment on above: Performed By: #### C BC #### [facility] [address] [place] [address] Dr. Juancho Marrero Lymphocytes/100 WBC (Bld) 36.8 % Normal 20.5-60.0 [facility] Comment on above: Performed By: #### C BC #### [facility] [address] [place] [address] Dr. Juancho Marrero MANUAL DIFF REQ NO Normal [facility] Comment on above: Performed By: #### C BC #### [facility] [address] [place] [address] Dr. Juancho Marrero MCH (RBC) [Entitic mass] 31.8 pg Normal 26.7-34.0 [facility] Comment on above: Performed By: #### C BC #### [facility] [address] [place] [address] Dr. Juancho Marrero MCHC (RBC) [Mass/Vol] 32.4 g/dL Normal 29.9-35.2 [facility] Comment on above: Performed By: #### C BC #### [facility] [address] [place] [address] Dr. Juancho Marrero MCV (RBC) [Entitic vol] 98.1 fL Normal 81.0-99.0 [facility] Comment on above: Performed By: #### C BC #### [facility] [address] [place] [address] Dr. Juancho Marrero MONO # 0.5 103/ul Normal 0.3-0.8 [facility] Comment on above: Performed By: #### C BC #### [facility] [address] [place] [address] Dr. Juancho Marrero Monocytes/100 WBC (Bld) 7.6 % Normal 1.7-12.0 [facility] Comment on above: Performed By: #### C BC #### [facility] [address] [place] [address] Dr. Juancho Marrero NEUT # 3.3 103/ul Normal 1.4-6.5 [facility] Comment on above: Performed By: #### C BC #### [facility] [address] [place] [address] Dr. Juancho Marrero Neutrophils/100 WBC (Bld) 49.7 % Normal 43.0-75.0 [facility] Comment on above: Performed By: #### C BC #### [facility] [address] [place] [address] Dr. Juancho Marrero Platelet mean volume (Bld) [Entitic vol] 9.7 fL Normal 9.5-13.5 [facility] Comment on above: Performed By: #### C BC #### [facility] [address] [place] [address] Dr. Juancho Marrero PLT 293 103/ul Normal 150-450 [facility] Comment on above: Performed By: #### C BC #### [facility] [address] [place] [address] Dr. Juancho Marrero RBC 4.22 106/ul Normal 4.20-5.40 [facility] Comment on above: Performed By: #### C BC #### [facility] [address] [address] [address] Juancho Marrero WBC 6.7 103/ul Normal 4.0-11.0 [facility] Comment on above: Performed By: #### C BC #### [facility] [address] [address] [address] Juancho Marrero GLYCOHEMOGLOBIN A1Con 2022 ADA RECOMMENDATION SEE BELOW Normal [facility] Comment on above: Result Comment: ADA RECOMMENDED LIMIT 4.0 - 6.0 ADA THERAPEUTIC TARGET < 7.0 ACTION SUGGESTED > 7.0 Performed By: #### A 1C #### [facility] [address] [place] [address] Dr. Juancho Marrero Glucose [Mass/Vol] 105 mg/dL Normal [facility] Comment on above: Performed By: #### A 1C #### [facility] [address] [place] [address] Dr. Juancho Marrero HbA1c (Bld) [Mass fraction] 5.3 % Normal 4.5-6.2 [facility] Comment on above: Performed By: #### A 1C #### [facility] [address] [place] [address] Dr. Juancho Marrero LIPID PROFILEon 01-12-2023 CHOL-HDL RATIO NORM SEE BELOW Normal [facility] Comment on above: Result Comment: 3.3 - 4.4 LOW RISK 4.4 - 7.1 AVERAGE RISK 7.1 - 11.0 MODERATE RISK >11.0 HIGH RISK Performed By: #### B MP, TSH, LIPID, LIVER #### [facility] [address] [address] [address] Juancho Marrero Cholesterol [Mass/Vol] 225 mg/dL Critically high <=200 [facility] Comment on above: Performed By: #### B MP, TSH, LIPID, LIVER #### [facility] [address] [place] [address] Dr. Juancho Marrero Cholesterol in HDL [Mass/Vol] 66 mg/dL Critically high 40-60 [facility] Comment on above: Performed By: #### B MP, TSH, LIPID, LIVER #### [facility] [address] [address] [address] Juancho Marrero Cholesterol in LDL [Mass/Vol] 134.6 mg/dL Normal [facility] Comment on above: Performed By: #### B MP, TSH, LIPID, LIVER #### [facility] [address] [address] [address] Juancho Marrero Cholesterol.total/Cho lesterol in HDL [Mass ratio] 3.4 {ratio} Normal [facility] Comment on above: Performed By: #### B MP, TSH, LIPID, LIVER #### [facility] [address] [address] [address] Juancho Marrero HDL NORMAL > or = 60 mg/dl - LOW CARDIOVASCULAR RISK <40 mg/dl - HIGH CARDIOVASCULAR RISK Normal [facility] Comment on above: Performed By: #### B MP, TSH, LIPID, LIVER #### [facility] [address] [address] [address] Juancho Marrero LDL CALC NORMAL SEE BELOW Normal [facility] Comment on above: Result Comment: <100 mg/dl OPTIMAL 100 - 129 mg/dl NEAR OR ABOVE OPTIMAL 130 - 159 mg/dl BORDERLINE HIGH 160 - 189 mg/dl HIGH >190 mg/dl VERY HIGH Performed By: #### B MP, TSH, LIPID, LIVER #### [facility] [address] [address] [address] Juancho Marrero Triglyceride [Mass/Vol] 122 mg/dL Normal <=150 [facility] Comment on above: Performed By: #### B MP, TSH, LIPID, LIVER #### [facility] [address] [address] [address] Juancho Marrero VLDL CALC 24.4 mg/dL Normal [facility] Comment on above: Performed By: #### B MP, TSH, LIPID, LIVER #### [facility] [address] [address] [address] Juancho Marrero LIVER PROFILEon 01-12-2023 Albumin [Mass/Vol] 4.0 g/dL Normal 3.4-5.0 [facility] Comment on above: Performed By: #### B MP, TSH, LIPID, LIVER #### [facility] [address] [place] [address] Dr. Juancho Marrero Albumin/Globulin [Mass ratio] 1.2 {ratio} Normal [facility] Comment on above: Performed By: #### B MP, TSH, LIPID, LIVER #### [facility] [address] [place] [address] Dr. Juancho Marrero ALP [Catalytic activity/Vol] 68 U/L Normal 46-116 [facility] Comment on above: Performed By: #### B MP, TSH, LIPID, LIVER #### [facility] [address] [place] [address] Dr. Juancho Marrero ALT [Catalytic activity/Vol] 28 U/L Normal 14-59 [facility] Comment on above: Performed By: #### B MP, TSH, LIPID, LIVER #### [facility] [address] [place] [address] Dr. Juancho Marrero AST [Catalytic activity/Vol] 19 U/L Normal 15-37 [facility] Comment on above: Performed By: #### B MP, TSH, LIPID, LIVER #### [facility] [address] [place] [address] Dr. Juancho Marrero BILI, CONJUGATED 0.1 mg/dL Normal 0.0-0.2 [facility] Comment on above: Performed By: #### B MP, TSH, LIPID, LIVER #### [facility] [address] [place] [address] Dr. Juancho Marrero Bilirubin [Mass/Vol] 0.3 mg/dL Normal 0.2-1.0 [facility] Comment on above: Performed By: #### B MP, TSH, LIPID, LIVER #### [facility] [address] [place] [address] Dr. Juancho Marrero Globulin (S) [Mass/Vol] 3.3 g/dL Normal [facility] Comment on above: Performed By: #### B MP, TSH, LIPID, LIVER #### [facility] [address] [place] [address] Dr. Juancho Marrero Protein [Mass/Vol] 7.3 g/dL Normal 6.4-8.2 [facility] Comment on above: Performed By: #### B MP, TSH, LIPID, LIVER #### [facility] [address] [address] [address] Juancho Marrero PROF CHEM 8 (BAS METB)on Anion gap [Moles/Vol] 10.3 mmol/L Normal [facility] Comment on above: Performed By: #### B MP, TSH, LIPID, LIVER #### [facility] [address] [address] [address] Juancho Marrero Calcium [Mass/Vol] 8.8 mg/dL Normal 8.5-10.1 [facility] Comment on above: Performed By: #### B MP, TSH, LIPID, LIVER #### [facility] [address] [place] [address] Dr. Juancho Marrero Chloride [Moles/Vol] 107 mmol/L Normal 98-107 [facility] Comment on above: Performed By: #### B MP, TSH, LIPID, LIVER #### [facility] [address] [address] [address] Juancho Marrero CO2 [Moles/Vol] 28.9 mmol/L Normal 21.0-32.0 [facility] Comment on above: Performed By: #### B MP, TSH, LIPID, LIVER #### [facility] [address] [address] [address] Juancho Marrero Creatinine [Mass/Vol] 0.64 mg/dL Normal 0.55-1.02 [facility] Comment on above: Performed By: #### B MP, TSH, LIPID, LIVER #### [facility] [address] [address] [address] Juancho Marrero EGFR-AF VENEZUELAN >60 Normal >=60 [facility] Comment on above: Performed By: #### B MP, TSH, LIPID, LIVER #### [facility] [address] [address] [address] Juancho Marrero EGFR-NON AF VENEZUELAN >60 Normal >=60 [facility] Comment on above: Performed By: #### B MP, TSH, LIPID, LIVER #### [facility] [address] [address] [address] Juancho Marrero Glucose [Mass/Vol] 99 mg/dL Normal 74-106 [facility] Comment on above: Performed By: #### B MP, TSH, LIPID, LIVER #### [facility] [address] [address] [address] Juancho Marrero Potassium [Moles/Vol] 4.2 mmol/L Normal 3.5-5.1 [facility] Comment on above: Performed By: #### B MP, TSH, LIPID, LIVER #### [facility] [address] [address] [address] Juancho Marrero Sodium [Moles/Vol] 142 mmol/L Normal 136-145 [facility] Comment on above: Performed By: #### B MP, TSH, LIPID, LIVER #### [facility] [address] [address] [address] Juancho Marrero Urea nitrogen [Mass/Vol] 14.0 mg/dL Normal 7.0-18.0 [facility] Comment on above: Performed By: #### B MP, TSH, LIPID, LIVER #### [facility] [address] [address] [address] Juancho Marrero Urea nitrogen/Creatinine [Mass ratio] 21.9 mg/mg Normal [facility] Comment on above: Performed By: #### B MP, TSH, LIPID, LIVER #### [facility] [address] [place] [address] Dr. Juancho Marrero TSHon 01-12-2023 TSH 3.881 uIU/mL Critically high 0.358-3.740 [facility] Comment on above: Performed By: #### B MP, TSH, LIPID, LIVER #### [facility] [address] [place] [address] Dr. Juancho Marrero Encounters Encounter Date Encounter Type Care Provider Facility Start: 01-26-2024 End: 01-26-2024 ambulatory GANGA STEVENS Not Available Start: 01-05-2024 End: 01-05-2024 ambulatory MIESHA BULLARD Not Available Start: 01-16-2023 Encounter for genera l adult medical examination without abnormal findings DR MIESHA BULLARD [facility] Start: 01-12-2023 End: 01-13-[address] MIESHA BULLARD Facility:[facility] Start: 01-12-2023 End: 01-13-2023 Encounter for general adult medical examination without abnormal findings DR MIESHA BULLARD Facility:[facility] Payers Date Payer Category Payer Unknown [id number] 1960 Unknown [id number] 1960 Unknown [id number] 1960 Unknown [id number] Summary Purpose Family History No Family History Records FoundNo Family History Records Found Advance Directives No Advanced Directives Records FoundNo Advanced Directives Records Found Additional Source Comments INFORMATION SOURCE (unrecogn ized section and content) DATE CREATED AUTHOR 01/17/2023 [facility] DATE CREATED AUTHOR AUTHOR'S ORGANIZ ATION 01/29/2024 [facility] EPIC FOR RECORDS [...] BE BASED ON THE PRIMARY CLINICAL RECORDS. [facility] [employer] provides no warranty or guarantee of the accuracy or completeness of information in this document.
== END 2024-05-22 12:31 | disposition home or self-care (01) ==
LOC: MAMMO 12:30
PROVIDERS: PCP Family Medicine; Visit Provider Family Medicine
DX: Z12.31 Encounter for screening mammogram for malignant neoplasm of breast (principal); Z80.3 Family history of malignant neoplasm of breast
CPT/HCPCS: 77063; 77067

== ENCOUNTER 2025-02-22 08:59 | Outpatient (OUT) | payer OTHER, SELFPAY ==
--- OUTSIDE RECORDS SUMMARY | 2025-02-22 09:17 | XMS_ITS | CCD ---
Author Organization [facility] Care Team Providers Care Member Certification Manager Name Role Phone DR MIESHA BULLARD Admitting Unavailable DR MIESHA BULLARD Attending Unavailable DR MIESHA BULLARD Primary Care Unavailable JUAN MIGUEL, DR MIESHA Hernandez Consulting Unavailable Miesha Bullard MD Primary Care Provider MIESHA BULLARD Attending Unavailable GANGA STEVENS Attending Unavailable MIESHA BULLARD Referring Unavailable MIESHA BULLARD Attending Unavailable Allergies Allergy Classification Reported Allergen(s) Allergy Type Date of Onset Reaction(s) Facility (4 sources) Morphine Drug Allergy 01-26-2024 Rash [facility] Medications Current Medications Medication Drug Class(es) Dates Sig (Normalized) Sig (Original) acetaminophen 300 mg / codeine phosphate 30 mg oral tablet (1 source) Opioid Agonist Start: 07-25-2024 End: 08-01-2024 take 1 tablet by mouth four times daily as needed for pain acetaminophen-codein e (Tylenol w/ Codeine #3) 300-30 MG tablet Indications: Primary osteoarthritis of right shoulder Take 1 tablet by mouth 4 (four) times a day as needed for severe pain for up to 7 days 28 tablet 07/25/2024 08/01/2024 Active lisinopril 5 mg oral tablet (4 sources) Angiotensin Converting Enzyme Inhibitor Start: 01-17-2024 take 0.5 tablet by mouth once daily lisinopril 5 MG tablet Indications: Essential hypertension, benign (CMS/HCC) take 1/2 tablet by mouth once daily 45 tablet 3 01/17/2024 Active Problems Active Problems Problem Classification Problem Date Documented Date Episodic/Chronic Disorders of lipid metabolism (4 sources) Dyslipidemia; Translations: [Hyperlipidemia, unspecified] Onset: 01-05-2024 01-05-2024 Chronic Essential hypertension (6 sources) Benign essential hypertension; Translations: [Essential (primary) hypertension] Onset: 01-05-2024 01-05-2024 Chronic Osteoarthritis (8 sources) Osteoarthritis of joint of right shoulder region; Translations: [Primary osteoarthritis, right shoulder] Onset: 01-05-2024 01-05-2024 Chronic Thyroid disorders (6 sources) Subclinical hypothyroidism; Translations: [Other specified hypothyroidism] Onset: 01-05-2024 01-05-2024 Chronic Past or Other Problems Problem Classification Problem Date Documented Da te Episodic/Chronic Diabetes mellitus without complication (4 sources) Prediabetes; Translations: [Prediabetes] Onset: 03-15-2024 03-15-2024 Episodic Other aftercare (4 sources) Long-term current use of drug therapy; Translations: [Other nursing home (current) drug therapy] Onset: 03-15-2024 03-15-2024 Episodic Other non-traumatic joint disorders (4 sources) Chronic pain of right upper limb; Translations: [Pain in right shoulder] Onset: 01-05-2024 Resolved: 01-05-2024 01-05-2024 Episodic Results Test Name Value Interpretation Reference Range Facil ity CBC AUTO DIFFon 01-12-2023 BASO # 0.1 103/ul Normal 0.0-0.1 [facility] Comment on above: Performed By: #### C BC #### [facility] [address] [place] [address] Dr. Juancho Marrero Basophils/100 WBC (Bld) 0.7 % Normal 0.2-2.0 [facility] Comment on above: Performed By: #### C BC #### [facility] [address] [place] [address] Dr. Juancho Marrero EO # 0.3 103/ul Normal 0.0-0.7 [facility] Comment on above: Performed By: #### C BC #### [facility] [address] [place] [address] Dr. Juancho Marrero Eosinophils/100 WBC (Bld) 4.9 % Normal 0.9-7.0 [facility] Comment on above: Performed By: #### C BC #### [facility] [address] [place] [address] Dr. Juancho Marrero Erythrocyte distribution width (RBC) [Ratio] 12.4 % Normal 11.0-15.0 [facility] Comment on above: Performed By: #### C BC #### [facility] [address] [place] [address] Dr. Juancho Marrero Hematocrit (Bld) [Volume fraction] 41.4 % Normal 36.0-48.0 [facility] Comment on above: Performed By: #### C BC #### [facility] [address] [place] [address] Dr. Juancho Marrero Hemoglobin (Bld) [Mass/Vol] 13.4 g/dL Normal 12.0-16.0 [facility] Comment on above: Performed By: #### C BC #### [facility] [address] [place] [address] Dr. Juancho Marrero IG # 0.02 10e3/ul Normal 0.00-0.03 [facility] Comment on above: Performed By: #### C BC #### [facility] [address] [place] [address] Dr. Juancho Marrero IG % 0.3 % Normal 0.0-0.5 [facility] Comment on above: Performed By: #### C BC #### [facility] [address] [place] [address] Dr. Juancho Marrero LYMPH # 2.5 103/ul Normal 1.2-3.8 [facility] Comment on above: Performed By: #### C BC #### [facility] [address] [place] [address] Dr. Juancho Marrero Lymphocytes/100 WBC (Bld) 36.8 % Normal 20.5-60.0 [facility] Comment on above: Performed By: #### C BC #### [facility] [address] [place] [address] Dr. Juancho Marrero MANUAL DIFF REQ NO Normal [facility] Comment on above: Performed By: #### C BC #### [facility] [address] [place] [address] Dr. Juancho Marrero MCH (RBC) [Entitic mass] 31.8 pg Normal 26.7-34.0 [facility] Comment on above: Performed By: #### C BC #### [facility] [address] [place] [address] Dr. Juancho Marrero MCHC (RBC) [Mass/Vol] 32.4 g/dL Normal 29.9-35.2 [facility] Comment on above: Performed By: #### C BC #### [facility] [address] [place] [address] Dr. Juancho Marrero MCV (RBC) [Entitic vol] 98.1 fL Normal 81.0-99.0 [facility] Comment on above: Performed By: #### C BC #### [facility] [address] [place] [address] Dr. Juancho Marrero MONO # 0.5 103/ul Normal 0.3-0.8 [facility] Comment on above: Performed By: #### C BC #### [facility] [address] [place] [address] Dr. Juancho Marrero Monocytes/100 WBC (Bld) 7.6 % Normal 1.7-12.0 [facility] Comment on above: Performed By: #### C BC #### [facility] [address] [place] [address] Dr. Juancho Marrero NEUT # 3.3 103/ul Normal 1.4-6.5 [facility] Comment on above: Performed By: #### C BC #### [facility] [address] [place] [address] Dr. Juancho Marrero Neutrophils/100 WBC (Bld) 49.7 % Normal 43.0-75.0 [facility] Comment on above: Performed By: #### C BC #### [facility] [address] [place] [address] Dr. Juancho Marrero Platelet mean volume (Bld) [Entitic vol] 9.7 fL Normal 9.5-13.5 [facility] Comment on above: Performed By: #### C BC #### [facility] [address] [place] [address] Dr. Juancho Marrero PLT 293 103/ul Normal 150-450 [facility] Comment on above: Performed By: #### C BC #### [facility] [address] [place] [address] Dr. Juancho Marrero RBC 4.22 106/ul Normal 4.20-5.40 [facility] Comment on above: Performed By: #### C BC #### [facility] [address] [place] [address] Dr. Juancho Marrero WBC 6.7 103/ul Normal 4.0-11.0 [facility] Comment on above: Performed By: #### C BC #### [facility] [address] [place] [address] Dr. Juancho Marrero GLYCOHEMOGLOBIN A1Con 2022 ADA RECOMMENDATION SEE BELOW Normal [facility] Comment on above: Result Comment: ADA RECOMMENDED LIMIT 4.0 - 6.0 ADA THERAPEUTIC TARGET < 7.0 ACTION SUGGESTED > 7.0 Performed By: #### A 1C #### [facility] [address] [place] [address] Dr. Juancho Marrero Glucose [Mass/Vol] 105 mg/dL Normal [facility] Comment on above: Performed By: #### A 1C #### [facility] [address] [place] [address] Dr. Juancho Marrero HbA1c (Bld) [Mass fraction] 5.3 % Normal 4.5-6.2 [facility] Comment on above: Performed By: #### A 1C #### [facility] [address] [place] [address] Dr. Juancho Marrero LIPID PROFILEon 01-12-2023 CHOL-HDL RATIO NORM SEE BELOW Normal [facility] Comment on above: Result Comment: 3.3 - 4.4 LOW RISK 4.4 - 7.1 AVERAGE RISK 7.1 - 11.0 MODERATE RISK >11.0 HIGH RISK Performed By: #### B MP, TSH, LIPID, LIVER #### [facility] [address] [place] [address] Dr. Juancho Marrero Cholesterol [Mass/Vol] 225 mg/dL Critically high <=200 [facility] Comment on above: Performed By: #### B MP, TSH, LIPID, LIVER #### [facility] [address] [address] [address] Juancho Marrero Cholesterol in HDL [Mass/Vol] 66 mg/dL Critically high 40-60 [facility] Comment on above: Performed By: #### B MP, TSH, LIPID, LIVER #### [facility] [address] [address] [address] Juancho Marrero Cholesterol in LDL [Mass/Vol] 134.6 mg/dL Normal [facility] Comment on above: Performed By: #### B MP, TSH, LIPID, LIVER #### [facility] [address] [address] [address] Juancho Marrero Cholesterol.total/Cho lesterol in HDL [Mass ratio] 3.4 {ratio} Normal [facility] Comment on above: Performed By: #### B MP, TSH, LIPID, LIVER #### [facility] [address] [address] [address] Juancho Marrero HDL NORMAL > or = 60 mg/dl - LOW CARDIOVASCULAR RISK <40 mg/dl - HIGH CARDIOVASCULAR RISK Normal [facility] Comment on above: Performed By: #### B MP, TSH, LIPID, LIVER #### [facility] [address] [address] [address] Juancho Marrero LDL CALC NORMAL SEE BELOW Normal [facility] Comment on above: Result Comment: <100 mg/dl OPTIMAL 100 - 129 mg/dl NEAR OR ABOVE OPTIMAL 130 - 159 mg/dl BORDERLINE HIGH 160 - 189 mg/dl HIGH >190 mg/dl VERY HIGH Performed By: #### B MP, TSH, LIPID, LIVER #### [facility] [address] [address] [address] Juancho Marrero Triglyceride [Mass/Vol] 122 mg/dL Normal <=150 [facility] Comment on above: Performed By: #### B MP, TSH, LIPID, LIVER #### [facility] [address] [address] [address] Juancho Marrero VLDL CALC 24.4 mg/dL Normal [facility] Comment on above: Performed By: #### B MP, TSH, LIPID, LIVER #### [facility] [address] [address] [address] Juancho Marrero LIVER PROFILEon 01-12-2023 Albumin [Mass/Vol] 4.0 g/dL Normal 3.4-5.0 [facility] Comment on above: Performed By: #### B MP, TSH, LIPID, LIVER #### [facility] [address] [address] [address] Juancho Marrero Albumin/Globulin [Mass ratio] 1.2 {ratio} Normal [facility] Comment on above: Performed By: #### B MP, TSH, LIPID, LIVER #### [facility] [address] [place] [address] Dr. Juancho Marrero ALP [Catalytic activity/Vol] 68 U/L Normal 46-116 [facility] Comment on above: Performed By: #### B MP, TSH, LIPID, LIVER #### [facility] [address] [place] [address] Dr. Juancho Marrero ALT [Catalytic activity/Vol] 28 U/L Normal 14-59 [facility] Comment on above: Performed By: #### B MP, TSH, LIPID, LIVER #### [facility] [address] [address] [address] Juancho Marrero AST [Catalytic activity/Vol] 19 U/L Normal 15-37 [facility] Comment on above: Performed By: #### B MP, TSH, LIPID, LIVER #### [facility] [address] [address] [address] Juancho Marrero BILI, CONJUGATED 0.1 mg/dL Normal 0.0-0.2 [facility] Comment on above: Performed By: #### B MP, TSH, LIPID, LIVER #### [facility] [address] [address] [address] Juancho Marrero Bilirubin [Mass/Vol] 0.3 mg/dL Normal 0.2-1.0 [facility] Comment on above: Performed By: #### B MP, TSH, LIPID, LIVER #### [facility] [address] [place] [address] Dr. Juancho Marrero Globulin (S) [Mass/Vol] 3.3 g/dL Normal [facility] Comment on above: Performed By: #### B MP, TSH, LIPID, LIVER #### [facility] [address] [place] [address] Dr. Juancho Marrero Protein [Mass/Vol] 7.3 g/dL Normal 6.4-8.2 [facility] Comment on above: Performed By: #### B MP, TSH, LIPID, LIVER #### [facility] [address] [address] [address] Juancho Marrero PROF CHEM 8 (BAS METB)on Anion gap [Moles/Vol] 10.3 mmol/L Normal [facility] Comment on above: Performed By: #### B MP, TSH, LIPID, LIVER #### [facility] [address] [place] [address] Dr. Juancho Marrero Calcium [Mass/Vol] 8.8 mg/dL Normal 8.5-10.1 [facility] Comment on above: Performed By: #### B MP, TSH, LIPID, LIVER #### [facility] [address] [place] [address] Dr. Juancho Marrero Chloride [Moles/Vol] 107 mmol/L Normal 98-107 [facility] Comment on above: Performed By: #### B MP, TSH, LIPID, LIVER #### [facility] [address] [place] [address] Dr. Juancho Marrero CO2 [Moles/Vol] 28.9 mmol/L Normal 21.0-32.0 [facility] Comment on above: Performed By: #### B MP, TSH, LIPID, LIVER #### [facility] [address] [place] [address] Dr. Juancho Marrero Creatinine [Mass/Vol] 0.64 mg/dL Normal 0.55-1.02 [facility] Comment on above: Performed By: #### B MP, TSH, LIPID, LIVER #### [facility] [address] [place] [address] Dr. Juancho Marrero EGFR-AF CITIZ[place] >60 Normal >=60 [facility] Comment on above: Performed By: #### B MP, TSH, LIPID, LIVER #### [facility] [address] [place] [address] Dr. Juancho Marrero EGFR-NON AF CITIZEN OF [place] >60 Normal >=60 [facility] Comment on above: Performed By: #### B MP, TSH, LIPID, LIVER #### [facility] [address] [place] [address] Dr. Juancho Marrero Glucose [Mass/Vol] 99 mg/dL Normal 74-106 [facility] Comment on above: Performed By: #### B MP, TSH, LIPID, LIVER #### [facility] [address] [place] [address] Dr. Juancho Marrero Potassium [Moles/Vol] 4.2 mmol/L Normal 3.5-5.1 [facility] Comment on above: Performed By: #### B MP, TSH, LIPID, LIVER #### [facility] [address] [place] [address] Dr. Juancho Marrero Sodium [Moles/Vol] 142 mmol/L Normal 136-145 [facility] Comment on above: Performed By: #### B MP, TSH, LIPID, LIVER #### [facility] [address] [place] [address] Dr. Juancho Marrero Urea nitrogen [Mass/Vol] 14.0 mg/dL Normal 7.0-18.0 [facility] Comment on above: Performed By: #### B MP, TSH, LIPID, LIVER #### [facility] [address] [place] [address] Dr. Juancho Marrero Urea nitrogen/Creatinine [Mass ratio] 21.9 mg/mg Normal [facility] Comment on above: Performed By: #### B MP, TSH, LIPID, LIVER #### [facility] [address] [place] [address] Dr. Juancho Marrero TSHon 01-12-2023 TSH 3.881 uIU/mL Critically high 0.358-3.740 [facility] Comment on above: Performed By: #### B MP, TSH, LIPID, LIVER #### [facility] [address] [place] [address] Dr. Juancho Marrero Vital Signs Date Time Vital Sign Value Performing Clinician Faci lity 07-14-2024 11:02-0500 Body height 154.9 cm Miesha Bullard MD Work Phone: [facility] 07-14-2024 11:02-0500 Body mass index (BMI) [Ratio] 20.41 kg/m2 Miesha Bullard MD Work Phone: [facility] 07-14-2024 11:02-0500 Body temperature 97.11 [degF] Miesha Bullard MD Work Phone: [facility] 07-14-2024 11:02-0500 Body weight 48.99 kg Miesha Bullard MD Work Phone: [facility] 07-14-2024 11:02-0500 Diastolic blood pressure 46 mm[Hg] Miesha Bullard MD Work Phone: [facility] 07-14-2024 11:02-0500 Heart rate 63 /min Miesha Bullard MD Work Phone: [facility] 07-14-2024 11:02-0500 Respiratory rate 22 /min Miesha Bullard MD Work Phone: [facility] 07-14-2024 11:02-0500 SaO2% (BldA) [Mass fraction] 98 % Miesha Bullard MD Work Phone: [facility] 07-14-2024 11:02-0500 Systolic blood pressure 110 mm[Hg] Miesha Bullard MD Work Phone: [facility] Encounters Encounter Date Encounter Type Care Provider Facility Start: 07-25-2024 End: 07-25-2024 Refill Miesha Bullard MD Work Phone: [facility] Comment on above: Primary osteoarthrit is of right shoulder Start: 07-14-2024 End: 07-14-2024 Bamboo flowsheet Miesha Bullard MD Work Phone: [facility] Start: 07-14-2024 End: 07-14-2024 Bamboo flowsheet Miesha Bullard MD Work Phone: [facility] Start: 07-14-2024 End: 07-14-2024 Office outpatient visit 25 minutes Miesha Bullard MD Work Phone: [facility] Comment on above: Essential hypertensi on, benign (CMS/HCC) (Primary Dx); Primary osteoarthritis of right shoulder; Subclinical hypothyroidism (CMS/HCC) Start: 07-14-2024 End: 07-14-2024 ambulatory MIESHA BULLARD Not Available Start: 01-26-2024 End: 01-26-2024 ambulatory GANGA RODNEY Not Available Start: 01-05-2024 Patient encounter procedure Miesha Bullard MD Work Phone: [facility] Start: 01-05-2024 End: 01-05-2024 ambulatory MIESHA BULLARD Not Available Start: 01-16-2023 Encounter for genera l adult medical examination without abnormal findings DR MIESHA BULLARD [facility] Start: 01-12-2023 End: 01-13-[address] MIESHA BULLARD Facility:[facility] Start: 01-12-2023 End: 01-13-2023 Encounter for general adult medical examination without abnormal findings DR MIESHA BULLARD Facility:[facility] Procedures Date Procedure Procedure Detail Performing Clinician Start: 05-22-2024 Mammography Miesha perdue MD Work Phone: Start: 04-11-2024 Colonoscopy Miesha perdue MD Work Phone: Plan of Treatment Date Care Activity Detail Author Start: 04-11-2034 Screening for malign ant neoplasm of colon [facility] Start: 05-22-2025 Screening for malign ant neoplasm of breast Mammogram [facility] Start: 01-12-2025 End: 01-12-2025 Patient encounter procedure 01/12/2025 11:00 AM EDT Office Visit [facility] [address] [place] [address] Miesha Bullard MD [address] [place] [address] [facility] Start: 07-14-2024 End: 07-14-2024 Patient encounter procedure 07/14/2024 11:15 AM EST [facility] [address] [place] [id number] Miesha Bullard MD [address] [place] [id number] Arrived [facility] Comment on above: Arrived Start: 05-07-2024 Influenza vaccination Influenza Vacc ine (#1) [facility] Start: 10-11-2022 Screening for malign ant neoplasm of cervix [facility] Start: 1981 Screening for malign ant neoplasm of cervix Pap Smear [facility] Start: 1960 Screening for malign ant neoplasm of colon [facility] Payers Date Payer Category Payer Private Health Insurance NICOLAS BALDERAS [id number] 2022 Unknown [id number] 1960 Unknown [id number] 1960 Unknown [id number] 1960 Unknown [id number] 1960 Unknown [id number] Social History Date Type Detail Facility Start: [facility]-05-[facility] Start: 01-05-2024 Tobacco use and exposure Smoke less tobacco non-user [facility] Start: 01-26-2024 End: 07-14-2024 Alcoholic beverage intake Lifetime non-drinker (finding) [facility] Start: 01-26-2024 End: 07-14-2024 [facility] of [facility] Start: 01-26-2024 End: 07-14-2024 Tobacco use panel [facility] Start: 1960 Sex assigned at Not on file [facility] History of Present illness Narrative 07-14-2024 Miesha Bullard MD - 07/14/2024 11:40 AM Israel Bullard MD - 07/14/2024 11:40 AM Israle Bullard MD - 07/14/2024 11:40 AM Israel Bullard MD - 07/14/2024 11:15 AM EST Note Date & Type Note Facility 07-14-2024 History of Presen t illness Narrative Associated Problem(s): Subclinical hypothyroidism (CMS/HCC) No signs of low thyroid and monitor. Associated Problem(s): Primary osteoarthritis of right shoulder Pain stable and use Tylenol #3 PRN. Associated Problem(s): Essential hypertension, benign (CMS/HCC) BP controlled and monitor PRN. Images from the original note were not included. Subjective Patient ID: Hannah Calixto is a 63 y.o. female who presents for Follow-up (6m ). Follow up HTN and shoulder pain. Patient feels well today. Checking BP PRN and typically controlled. BP normal today. Taking medication daily and tolerating without side effects. Shoulder pain stable. Mild pain in shoulder and worse with activity. Pain with lifting or exercising. Typically mild and OTC helps. Using Tylenol #3 PRN and helps when needed. Labs showed elevated TSH. Denies signs of low thyroid. No fatigue or changes in nails or skin. Review of Systems Respiratory: Negative for cough, shortness of breath and wheezing. Cardiovascular: Negative for chest pain and palpitations. Gastrointestinal: Negative for abdominal pain, diarrhea, nausea and vomiting. Genitourinary: Negative for dysuria. Objective Physical Exam Constitutional: General: She is not in acute distress. Appearance: Normal appearance. HENT: Head: Normocephalic. Right Ear: Tympanic membrane normal. Left Ear: Tympanic membrane normal. Eyes: Extraocular Movements: Extraocular movements intact. Pupils: Pupils are equal, round, and reactive to light. Cardiovascular: Rate and Rhythm: Normal rate and regular rhythm. Heart sounds: No murmur heard. No friction rub. No gallop. Pulmonary: Effort: Pulmonary effort is normal. Breath sounds: Normal breath sounds. No wheezing, rhonchi or rales. Abdominal: General: Bowel sounds are normal. There is no distension. Palpations: Abdomen is soft. Tenderness: There is no abdominal tenderness. There is no guarding or rebound. Musculoskeletal: Cervical back: Neck supple. Right lower leg: No edema. Left lower leg: No edema. Neurological: Mental Status: She is alert. Assessment/Plan Problem List Items Addressed This Visit Essential hypertension, benign (CMS/HCC) - Primary BP controlled and monitor PRN. Subclinical hypothyroidism (CMS/HCC) No signs of low thyroid and monitor. Primary osteoarthritis of right shoulder Pain stable and use Tylenol #3 PRN. documented in this encounter [facility] Evaluation note Note Date & Type Note Facility Evaluation note Diagnosis Annual physical exam- Primary Routine general medical examination at a health care facility Essential hypertension, benign (CMS/HCC) Essential hypertension, benign Colon cancer screening Special screening for malignant neoplasms, colon Essential hypertension, benign (CMS/HCC)- Primary Essential hypertension, benign Primary osteoarthritis of right shoulder Subclinical hypothyroidism (CMS/HCC) Other specified acquired hypothyroidism documented in this encounter [facility] Evaluation note Note Date & Type Note Facility Evaluation note Diagnosis Annual physical exam- Primary Routine general medical examination at a health care facility Essential hypertension, benign (CMS/HCC) Essential hypertension, benign Colon cancer screening Special screening for malignant neoplasms, colon Essential hypertension, benign (CMS/HCC)- Primary Essential hypertension, benign Primary osteoarthritis of right shoulder Subclinical hypothyroidism (CMS/HCC) Other specified acquired hypothyroidism Primary osteoarthritis of right shoulder documented in this encounter [facility] Summary Purpose Family History No Family History Records FoundNo Family History Records Found Advance Directives No Advanced Directives Records FoundNo Advanced Directives Records Found Additional Source Comments INFORMATION SOURCE (unrecogn ized section and content) DATE CREATED AUTHOR 01/17/2023 [facility] DATE CREATED AUTHOR AUTHOR'S ORGANIZ ATION 07/16/2024 [facility] EPIC Care Teams (unrecognized sec tion and content) Member Certification Manager Relationship Specialty Start Date End Date Miesha Bullard MD [address] [place] [phone] PCP - General Family Medicine 01/05/24 Member Certification Manager Relationship Specialty Start Date End Date Miesha Bullard MD [address] [place] [phone] PCP - General Family Medicine 01/05/24 Member Certification Manager Relationship Specialty Start Date End Date Miesha Bullard MD [address] [place] [phone] PCP - General Family Medicine 01/05/24 Reason for Visit (unrecogniz ed section and content) Reason Comments Follow-up 6m Reason Onset Date Comments Med Refill 07/25/2024 FOR RECORDS PERTAINING TO PATIENTS WHO ARE [...] BE BASED ON THE PRIMARY CLINICAL RECORDS. [employer] provides no warranty or guarantee of the accuracy or completeness of information in this document.
[2025-02-22 10:15] LABS: Basophils Percent Auto 0.5 % (0.2-2.0); Eosinophils Absolute Auto 0.1 10^3/uL (0.0-0.7); Eosinophils Percent Auto 1.2 % (0.9-7.0); Hematocrit 38.3 % (36.0-48.0); Hemoglobin 12.6 g/dL (12.0-16.0); Immature Granulocytes Abs Auto 0.02 10^3/uL (0.00-0.03); Immature Granulocytes Pct Auto 0.3 % (0.0-0.5); Lymphocytes Absolute Auto 2.3 10^3/uL (1.2-3.8); Lymphocytes Percent Auto 39.7 % (20.5-60.0); Mean Corpuscular HGB Conc 32.9 g/dL (29.9-35.2); Mean Corpuscular Hemoglobin 31.7 pg (26.7-34.0); Mean Corpuscular Volume 96.2 fL (81.0-99.0); Mean Platelet Volume 10.3 fL (9.5-13.5); Monocytes Absolute Auto 0.6 10^3/uL (0.3-0.8); Monocytes Percent Auto 9.5 % (1.7-12.0); Neutrophils Absolute Auto 2.8 10^3/uL (1.4-6.5); Neutrophils Percent Auto 48.8 % (43.0-75.0); Platelet Count 281 10^3/uL (150-450); Red Blood Count 3.98 10^6/uL (4.20-5.40); Red Cell Distribution Width 12.3 % (11.0-15.0); White Blood Count 5.8 10^3/uL (4.0-11.0)
[2025-02-22 10:52] LABS: Alanine Aminotransferase 26 U/L (14-59); Albumin Globulin Ratio 1.4; Alkaline Phosphatase 56 U/L (46-116); Anion Gap 12.2; Aspartate Amino Transferase 20 U/L (15-37); BUN Creatinine Ratio 29.6; Bilirubin Direct 0.1 mg/dL (0.0-0.2); Bilirubin Total 0.4 mg/dL (0.2-1.0); Calcium 9.1 mg/dL (8.5-10.1); Carbon Dioxide 28.9 mmol/L (21.0-32.0); Chloride 105 mmol/L (98-107); Chol HDL Ratio 2.7; Cholesterol 200 mg/dL (<=200); Estimated GFR (African America >60 (>=60 mL/min/1.73m^2); Estimated GFR (Non-African Ame >60 (>=60 mL/min/1.73m^2); Globulin 2.8 g/dL; Glucose 98 mg/dL (74-106); HDL Cholesterol 73 mg/dL (40-60); Potassium 4.1 mmol/L (3.5-5.1); Sodium 142 mmol/L (136-145); Total Protein 6.8 g/dL (6.4-8.2); Triglycerides 81 mg/dL (<=150); VLDL CHOLESTEROL 16.2 mg/dL
[2025-02-22 11:23] LABS: Estimated Average Glucose 117 mg/dL; Glycohemoglobin A1C 5.7 % (4.5-6.2)
== END 2025-02-22 09:00 | disposition home or self-care (01) ==
PROVIDERS: PCP Family Medicine; Visit Provider Family Medicine
DX: Z79.899 Other long term (current) drug therapy (principal); R73.03 Prediabetes; E78.5 Hyperlipidemia, unspecified; E03.8 Other specified hypothyroidism
CPT/HCPCS: 36415; 80048; 80061; 80076; 83036; 84443; 85025